=== PATIENT | male | born 1945 ===

== ENCOUNTER 2023-07-02 07:04 | Outpatient (RCR) | payer MEDICARE, BC, SELFPAY | END 2023-07-02 23:59 | disposition home or self-care (01) | LOC: RPT 07:04 | PROVIDERS: ATTENDING PHYSICIAN Specialist; FAMILY PHYSICIAN Legal Medicine | DX: Z47.1 Aftercare following joint replacement surgery (principal); Z96.611 Presence of right artificial shoulder joint | CPT/HCPCS: 97140; 97161 ==

== ENCOUNTER 2023-08-06 09:51 | Outpatient (RCR) | payer MEDICARE, BC, SELFPAY | END 2023-08-06 13:59 | disposition home or self-care (01) | LOC: RPT 09:51 | PROVIDERS: ATTENDING PHYSICIAN Specialist; FAMILY PHYSICIAN Legal Medicine | DX: Z47.1 Aftercare following joint replacement surgery (principal); Z96.611 Presence of right artificial shoulder joint; Z73.6 Limitation of activities due to disability | CPT/HCPCS: 97010; 97110; 97140 ==